=== PATIENT | female | born 1950 | race Two or more races ===

== ENCOUNTER 2017-11-18 08:57 | Outpatient (CLI) | payer OTHER | END 2017-11-18 09:00 | disposition home or self-care (01) | LOC: SONOGRAMA 08:57 | DX: E04.2 Nontoxic multinodular goiter (principal) ==

== ENCOUNTER 2024-03-06 07:44 | Outpatient (CLI) | payer OTHER | END 2024-03-06 07:45 | disposition home or self-care (01) | LOC: NUCLEAR 07:44 | PROVIDERS: ATTEND Internal Medicine | DX: I20.9 Angina pectoris, unspecified (principal) | CPT/HCPCS: 78452; 93017; A9500; J1250 ==